=== PATIENT | female | born 1955 | race Caucasian/White ===

== ENCOUNTER 2020-01-19 13:23 | Emergency (ER) | payer MEDICARE, SELFPAY ==
--- NOTE | ~2020-01-19 | XR_ITS ---
EXAMINATION: XR chest 2V DATE: 01/19/2020 14:20 INDICATION: Cough TECHNIQUE: PA and lateral views of the chest are obtained. COMPARISON: None available FINDINGS: There are minimal opacities of the mid and lower lung zones. Subsegmental atelectasis is pr esent in the right lower lobe. There is no pleural effusion or pneumothorax. The heart size is upper limits of normal. Median sternotomy wires and mediastinal surgical clips are seen, likely from prior coronary artery bypass grafting. There is moderate thoracic spondylosis. IMPRESSION: 1. Minimal airspace opacities of the mid and lower lung zones, likely infectious or inflammatory. Reviewed, dictated and finalized at location A. [facility] [employer] IMPRESSION: 1. Minimal airspace opacities of the mid and lower lung zones, likely infectiou s or inflammatory.
[2020-01-19 13:35] VITALS: BP 135/69; PULSE 71; RESP 28; TEMP 36.9; O2SAT 99
--- NOTE | 2020-01-19 13:36 | ED.URI ---
HPI - URI/Sore Throat General Chief Complaint: Upper Respiratory Infection Stated Complaint: Flu Time Seen by Provider: 01/19/20 13:55 Source: patient and RN notes reviewed Mode of arrival: ambulatory Limitations: no limitations History of Present Illness HPI Narrative: 64-year-old female with history of heart disease on 2 L home oxygen presents with concern for exposure to the flu, cough, runny nose, chills, body aches, fever. Reports symptoms started yesterday. Reports she has had Gullion Mandel? and is unable to get a flu shot. MD elicited complaint: cough Related Data Home Medications Medication Instructions Recorded Confirmed Iprotroprius 01/19/20 Oxygen 01/19/20 aspirin [Aspir-81] 81 mg PO DAILY 01/19/20 01/19/20 atorvastatin [Lipitor] 20 mg PO DAILY 01/19/20 01/19/20 budesonide 1 inh INHALATION Q12H 01/19/20 01/19/20 budesonide [Pulmicort] 0.5 mg INHALATION BID 01/19/20 01/19/20 buspirone 15 mg PO BID 01/19/20 01/19/20 gabapentin 600 mg PO TID 01/19/20 01/19/20 ipratropium bromide [Atrovent HFA] 1 puff INHALATION QID 01/19/20 01/19/20 levalbuterol tartrate [Xopenex HFA] INHALATION 01/19/20 Allergies Allergy/AdvReac Type Severity Reaction Status Date / Time albuterol Allergy Hives Verified 01/19/20 14:00 diltiazem Allergy Hives Verified 01/19/20 14:00 levofloxacin Allergy Hives Verified 01/19/20 13:59 Review of Systems Review of Systems: Narrative: CONSTITUTIONAL: Reports malaise, chills, sweats, fever. EYES: Denies visual changes, redness, or discharge. ENT: Reports rhinorrhea, congestion. Denies sinus pain, otalgia and sore throat. CARDIOVASCULAR: Denies chest pain, palpitations, or edema. RESPIRATORY: Reports cough. Denies dyspnea. GASTROINTESTINAL: Denies abdominal pain, nausea, vomiting, diarrhea SKIN: Denies rash or itching. MUSCULOSKELETAL: Reports myalgia. NEUROLOGIC: Denies headache. All systems reviewed & are unremarkable except as noted in HPI and below PMFSH Comments At time of signature, agree with nursing past medical, surgical, social and family history. There is no relevant family history pertinent to the presenting complaint Exam Narrative: Exam Narrative: GENERAL: Well-appearing, well-nourished, and in no acute distress. HEAD: Normocephalic EYES: PERRLA, conjunctivae clear ENT: Nares clear, turbinates erythematous, clear discharge. Mucous membranes moist. TM pearly webber with dull light reflex bilaterally; no tragal tenderness. Oropharynx not erythematous without lesions. Tonsils not enlarged and without exudate, no drooling, no hoarseness, no trismus. NECK: Supple. No lymphadenopathy CHEST: Clear to auscultation, breath sounds equal, diminished in the bases no wheezing, rhonchi, rales, or stridor. No respiratory distress, speaks in full sentences. HEART: Regular rate and rhythm. No murmur heard. Normal peripheral pulses. SKIN: Warm, dry, no rash. NEURO: Alert and oriented x3. 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 Patient reports she has an appointment on Wednesday Patient is aware of diagnosis, understands and agrees to treatment plan. Anticipatory guidance given. Patient agrees to follow-up as directed and is aware of reasons to seek care at the emergency department. Portions of this record may have been created with voice recognition software Vital Signs Vital signs: Vital Signs Temperature 98.4 F 01/19/20 13:35 Pulse Rate 71 01/19/20 13:35 Respiratory Rate 28 H 01/19/20 13:35 Blood Pressure 135/69 01/19/20 13:35 Pulse Oximetry 99 01/19/20 13:35 Temperature 98.4 F 01/19/20 13:35 Pulse Rate 71 01/19/20 13:35 Respiratory Rate 28 H 01/19/20 13:35 Blood Pressure 135/69 01/19/20 13:35 Pulse Oximetry 99 01/19/20 13:35 Reviewed. Patient has current diagnosis of hypertension MDM - URI/Sore Throat
== END 2020-01-19 14:49 | disposition home or self-care (01) ==
PROVIDERS: Emergency Provider Nurse Practitioner; PCP Family Medicine
DX: J10.1 Influenza due to other identified influenza virus with other respiratory manifestations (principal); R91.8 Other nonspecific abnormal finding of lung field; E78.00 Pure hypercholesterolemia, unspecified; I10 Essential (primary) hypertension; Z90.2 Acquired absence of lung [part of]; Z95.1 Presence of aortocoronary bypass graft
CPT/HCPCS: 71046; 87804; 99203; G0463